=== PATIENT | female | born 1965 | race Caucasian/White ===

== ENCOUNTER → 2021-01-06 16:26 | Outpatient (BNVA) | payer MEDICARE, MEDICAID, SELFPAY | PROVIDERS: Family Provider Family Medicine; Visit Provider Orthopaedic Surgery | DX: Z01.812 Encounter for preprocedural laboratory examination (principal); Z20.822 Contact with and (suspected) exposure to COVID-19 | CPT/HCPCS: 87635 ==

== ENCOUNTER → 2021-01-19 13:13 | Outpatient (BNVA) | payer MEDICARE, MEDICAID, SELFPAY | PROVIDERS: Family Provider Family Medicine; Visit Provider Orthopaedic Surgery | DX: S72.001A Fracture of unspecified part of neck of right femur, initial encounter for closed fracture (principal); S72.011A Unspecified intracapsular fracture of right femur, initial encounter for closed fracture; X58.XXXA Exposure to other specified factors, initial encounter | CPT/HCPCS: 73502 ==

== ENCOUNTER 2021-01-20 07:05 | Day surgery (SDC) | payer MEDICARE, MEDICAID, SELFPAY ==
[2021-01-07 12:23] VITALS: BMI 18.8
[2021-01-19 13:01] VITALS: BMI 18.9
[2021-01-20] VITALS (7 sets, daily range): BP systolic 134–149; BP diastolic 77–99; PULSE 82–93; RESP 13–17; TEMP 36.5; O2SAT 95–100
--- NOTE | 2021-01-20 | SCC_ITS ---
Procedure Done: Closed reduction percutaneous pinning of right femoral neck fracture 67.7 seconds of fluoroscopic guidance, for a cumulative dose of 6.32 mGy, was provided to Dr. Sykes by the radiology department. C-arm images of the RIGHT hip were saved for the patient's permanent record. [facility]
--- NOTE | 2021-01-20 | XR_ITS ---
WS: [id number] Right hip, C-arm fluoroscopy views, 01/20/2021 Clinical Data: PERCUTANEOUS PINNING Comparison: None. Findings: Right subcapital fracture is reduced with 3 orthopedic pins. XR/XR hip RT 2-3V wo/w pel* [id number] Impression: Internal fixation of right hip subcapital fracture.
[2021-01-20] MEDS: sodium chloride 0.9% 1,000 ML 30 ML IV (08:00)
--- NOTE | 2021-01-20 08:04 | ANES.PREANE2 ---
Pre-Anesthetic Assessment Pre-Anesthetic Assessment: Height/Weight: Height 1.52 m Weight 43.998 kg Preop Diagnosis: Fracture Right femoral neck Proposed Procedure: Operation Date: 01/20/21 08:55 Proposed Procedures p percutaneous pinning right hip/ 78411 S72.001A S72.011A(Right) - Tino Sykes DO Familial anesthetic complications: none Was Beta Bonifacio taken within 24 hours: N/A Was Clonidine taken within 24 hours: N/A Last intake: Intake Last Liquid Date 01/19/21 Last Liquid Time 19:00 Last Solid Date 01/19/21 Last Solid Time 19:00 Social: Social History: No alcohol and No tobacco Exam: Pre-Anes Outpt Exam: alert, oriented x 3, clear to auscultation bilaterally and regular rate & rhythm Airway: Dentition: Other (missing) Additional comments: patient uncooperative w/ mallampati exam Neuropsych: Comments: Cerebral palsy (able to walk around, just limps), profound developmental delay Anesthetic Plan: ASA status: 2 Anesthesia: General Risk of > 500 ml blood loss (7ml/kg in children): No PFSH Anesthesia PFSH: Social History Alcohol intake: never Data Anesthesia Cardiac Studies: No Data to Display
--- NOTE | 2021-01-20 09:04 | W.PM.OPSUD ---
Surgery/Procedure H&P Update DATE OF PROCEDURE: January 20, 2021 DATE H&P PERFORMED: 01/06/21 H&P UPDATE INFORMATION: I have reviewed H&P completed within last 30 days, I have examined patient prior to procedure and No changes to prior documentation PREOP DIAGNOSIS: Fracture Right femoral neck PLANNED PROCEDURE: Operation Date: 01/20/21 08:55 Proposed Procedures p percutaneous pinning right hip/ 72812 S72.001A S72.011A(Right) - Tino Sykes DO
--- NOTE | 2021-01-20 10:13 | PM.OP ---
Operative Report Date of procedure: January 20, 2021 Pre-op Diagnosis: Fracture Right femoral neck Post-op diagnosis: same Procedure Done: Closed reduction percutaneous pinning of right femoral neck fracture Surgeon: Tino Sykes Anesthesia: General Estimated blood loss (mL): 5 Condition: stable Disposition: PACU Procedure: Patient was brought to the operative suite placed in the supine position on the fracture table all areas impingement were well-padded patient was prepped and draped normal sterile fashion. Skin incision made over the right lateral thigh. The 3 guidewires were placed up into the femoral head and the inverted triangle. Screws were measured cortex was drilled and 3 screws were placed up into the femoral neck. And then wounds were irrigated. AP lateral fluoroscopy ensured the fracture and hardware improved position. Wounds irrigated closed with Vicryl and amita. Sterile dressing applied patient transferred the PACU in stable condition.
--- NOTE | 2021-01-20 12:13 | ANE.PACU2 ---
Inpatient post-anesthesia follow up: Airway intact: Yes Vital signs: Temperature 97.7 F Pulse Rate 92 Respiratory Rate 17 Blood Pressure 145/99 Pulse Oximetry 95 Oxygen Delivery Me thod Room Air Oxygen Flow Rate 8 Fraction of Inspir ed Oxygen Hydration adequate: Yes Nausea and vomiting: No Pain level: 2 Mental status: Baseline
== END 2021-01-20 11:15 | disposition home or self-care (01) ==
PROVIDERS: PCP Nurse Practitioner Family; Visit Provider Orthopaedic Surgery
PROC: (CPT 27236; 2021-01-20 08:45)
DX: S72.001A Fracture of unspecified part of neck of right femur, initial encounter for closed fracture (principal); X58.XXXA Exposure to other specified factors, initial encounter; G80.9 Cerebral palsy, unspecified; F79 Unspecified intellectual disabilities
CPT/HCPCS: 27235; 73502; 76000; C1713; J2704; J3010; J7030

== ENCOUNTER → 2021-02-04 08:20 | Outpatient (BNVA) | payer MEDICARE, MEDICAID, SELFPAY | PROVIDERS: PCP Nurse Practitioner Family; Visit Provider Orthopaedic Surgery | DX: S72.001D Fracture of unspecified part of neck of right femur, subsequent encounter for closed fracture with routine healing (principal); X58.XXXD Exposure to other specified factors, subsequent encounter | CPT/HCPCS: 73502 ==

== ENCOUNTER → 2021-03-04 09:12 | Outpatient (BNVA) | payer MEDICARE, MEDICAID, SELFPAY | PROVIDERS: PCP Nurse Practitioner Family; Visit Provider Orthopaedic Surgery | DX: Z98.890 Other specified postprocedural states; S72.009D Fracture of unspecified part of neck of unspecified femur, subsequent encounter for closed fracture with routine healing; X58.XXXD Exposure to other specified factors, subsequent encounter | CPT/HCPCS: 73502 ==

== ENCOUNTER → 2021-04-13 13:00 | Outpatient (BNVA) | payer MEDICARE, MEDICAID, SELFPAY | PROVIDERS: PCP Nurse Practitioner Family; Visit Provider Orthopaedic Surgery | DX: S72.009A Fracture of unspecified part of neck of unspecified femur, initial encounter for closed fracture (principal); X58.XXXA Exposure to other specified factors, initial encounter; Z98.890 Other specified postprocedural states | CPT/HCPCS: 73502 ==